=== PATIENT | female | born 1990 | race Caucasian/White ===

== ENCOUNTER 2022-01-16 20:17 | Emergency (ER) | payer MEDICARE ==
[~2022-01-16] VITALS: Ht 170.2 cm; Wt 93.9 kg
[2022-01-16] MEDS ORDERED: FLUVOXAMINE MA100 MG PO (20:43)
== END 2022-01-16 21:03 | disposition home or self-care (01) ==
LOC: ED 20:17
DX: F32.A Depression, unspecified (principal); F41.9 Anxiety disorder, unspecified; Z79.899 Other long term (current) drug therapy
CPT/HCPCS: 99283